=== PATIENT | male | born 1955 | race American Indian/Alaskan Native ===

== ENCOUNTER 2018-01-13 03:13 | Emergency (ER) | payer MEDICAID ==
--- NOTE | 2018-01-13 04:44 | Emergency Department Report ---
ED CPR HPI - General Chief Complaint: Cardiac Arrest/CPR Stated Complaint: CARDIAC ARREST Time Seen by Provider: 01/13/18 04:35 Source: EMS Mode of arrival: Stretcher Limitations: Other - History of Present Illness Initial Comments: Mr. Sexton is a 62 years old male, [facility] skilled nursing resident. Patient brought in to the ER EMS in full cardiac arrest. Patient was found face down by skilled nursing staff. EMS immediately started ACLS protocol. Initial rhythm was asystole and patient remained in asystole throughout resuscitation. Upon arrival to the ER patient immediately intubated by me, ET tube confirmed by direct visualization and good breath sounds on both sides. ACLS protocol continued but unfortunately the patient did not respond to resuscitation and remained in asystole. Patient pronounced at 03:25 AM. For further information please refer to code sheet. Family informed. Complaint: found unresponsive Place: NH/SNF Bystander CPR Performed: Yes Shock Advised: No Downtime Before ACLS Arrival (mins): 40 Initial Findings in the Field: no pulse, systole ROSC in the Field: No Associated Injuries: No - Related Data Allergies Allergy/AdvReac Type Severity Reaction Status Date / Time No Known Allergies Allergy Unverified 01/13/18 03:45 ED Review of Systems ROS: Stated complaint: CARDIAC ARREST Other details as noted in HPI Comment: Unobtainable due to pts medical conditions ED Past Medical Hx - Past Medical History Previous Medical History?: Yes Hx Hypertension: Yes Hx GERD: Yes Hx of Cancer: Yes (malignant neoplasm of rectum) Hx COPD: Yes Additional medical history: pericardial effusion, ascites - Surgical History Past Surgical History?: No Additional Surgical History: TYSHAWN ED Physical Exam - General Limitations: Other General appearance: other (intubated) - Head Head exam: Present: atraumatic, normocephalic, normal inspection - Eye Pupils: Present: other (4 mm fixed and dilated) - ENT ENT exam: Present: normal exam - Neck Neck exam: Present: normal inspection - Respiratory Respiratory exam: Present: other (no spontaneous breathing) - Cardiovascular Cardiovascular Exam: Present: other (no pulse or heart tone) - GI/Abdominal GI/Abdominal exam: Present: soft - Extremities Exam Extremities exam: Present: normal inspection - Intubation Time Out Performed: Yes Sedative: none Laryngoscope: fiberoptic video scope Size: 4 Assist Device Used: fiberoptic device ET Tube Size: 7.5 Tube Secured Location: teeth Tube Placement Confirmation: visualized tube passing t, equal breath sounds bilat, no breath sounds over epi, confirmation by capnometr Patient Tolerated Procedure: well Intubation Complications: none Critical Care Time: Yes Critical care time in (mins) excluding proc time.: 30 Critical care attestation.: If time is entered above; I have spent that time in minutes in the direct care of this critically ill patient, excluding procedure time. ED Disposition Clinical Impression: Cardiopulmonary arrest Disposition: DC-20 Is pt being admited?: No Condition: Stable Referrals: CHINMAY SEXTON MD [Primary Care Provider] - 3-5 Days
[2018-01-13] MEDS ORDERED: ADRENALIN ONE (13:40)
[2018-01-13] MEDS ORDERED: SODIUM BICARBONATE IV ONE (13:40)
== END 2018-01-13 06:10 ==
LOC: ED 03:13
DX: I46.9 Cardiac arrest, cause unspecified (principal); I10 Essential (primary) hypertension; K21.9 Gastro-esophageal reflux disease without esophagitis; J44.9 Chronic obstructive pulmonary disease, unspecified
CPT/HCPCS: 31500; 92950; 99291; J0171